=== PATIENT | female | born 1940 | race Hispanic/Latino ===

== ENCOUNTER 2017-03-01 06:54 | Day surgery (SDC) | payer MEDICARE, OTHER ==
[2017-02-20 12:35] VITALS: BMI 25.8
[2017-03-01] MEDS ORDERED: Propofol 10 mg/ml Inj (20 ML) ONE (08:12)
[2017-03-01] MEDS ORDERED: Sodium Chloride 0.9% 1,000 ML IV SCH (09:30)
[2017-03-01 09:51] VITALS: PULSE 52
[2017-03-01 11:03] VITALS: BP 120/72; RESP 15; TEMP 98.5; O2SAT 96
== END 2017-03-01 11:00 | disposition home or self-care (01) ==
LOC: ENDO 06:54
PROVIDERS: ATTEND Internal Medicine Gastroenterology
DX: Z12.11 Encounter for screening for malignant neoplasm of colon (principal); K63.5 Polyp of colon; K57.30 Diverticulosis of large intestine without perforation or abscess without bleeding; K64.8 Other hemorrhoids; I10 Essential (primary) hypertension
CPT/HCPCS: 45385; 88305; J2704; J7040 ×2